=== PATIENT | male | born 1940 | race Caucasian/White ===

== ENCOUNTER 2021-03-20 10:17 | Inpatient (IN) | payer OTHER ==
[2021-03-20 12:35] LABS: VENOUS BASE EXCESS 1.7 mmol/L (-2-2); VENOUS PCO2 51.1 mmHg (38-52); VENOUS PH 7.355 (7.310-7.410)
[2021-03-20 12:42] LABS: BASO % 0.4 % (0-2.0); EOS % 5.3 % (0-4.5); HEMATOCRIT 31.2 % (35.4-49); HEMOGLOBIN 10.7 GM/dL (11.7-16.9); LYMPH % 17.4 % (8-40); MCH 32.1 pg (25.7-33.7); MCHC 34.3 g/dl (32.0-35.9); MEAN CELL VOLUME 93.6 fl (80-96); MEAN PLT VOLUME 7.9 fl (7.5-11.1); MONO % 9.2 % (3.8-10.2); NEUT % 67.7 % (42.8-82.8); PLATELET COUNT 213 K/MM3 (134-434); RBC 3.34 M/mm3 (4.00-5.60); RDW 14.8 % (11.9-15.9); WHITE BLOOD COUNT 6.2 K/mm3 (4.0-10.0)
[2021-03-20 12:57] LABS: CALCIUM 8.8 mg/dL (8.5-10.1)
[2021-03-20 12:58] LABS: ALBUMIN 3.4 g/dl (3.4-5.0); BLOOD UREA NITROGEN 44.5 mg/dL (7-18); MAGNESIUM 2.3 mg/dL (1.8-2.4)
[2021-03-20 13:01] LABS: CREATININE 1.9 mg/dL (0.55-1.3)
[2021-03-20 13:02] LABS: BILIRUBIN,TOTAL 0.4 mg/dL (0.2-1); TOT PROT 6.5 g/dl (6.4-8.2)
[2021-03-20] MEDS ORDERED: ACETAMINOPHEN 500 MG TABLET (FP) PO ONE (13:59)
[2021-03-20] MEDS ORDERED: ACETAMINOPHEN 500 MG TABLET (FP) ONE (14:05)
[2021-03-20] MEDS ORDERED: methylPREDNISolone NA SUCC 125 MG/2 ML VIAL IVPB ONE (14:33)
[2021-03-20] MEDS ORDERED: ALBUTEROL SO4 2.5/IPRATROPIUM 0.5 INH SOL 3 ML VIAL.NEB. NEB ONE (14:33)
[2021-03-20] MEDS ORDERED: CEFTRIAXONE 1,000 MG in DEXTROSE 5%-WATER - 50 ML IVPB ONE (14:34)
[2021-03-20] MEDS ORDERED: AZITHROMYCIN IVPB 500 MG in DEXTROSE 5%-WATER - 250 ML IVPB ONE (14:34)
[2021-03-20 14:55] LABS: INR 1.04 (0.83-1.09); PROTHROMBIN TIME (PATIENT) 12.8 SEC (9.7-13.0)
[2021-03-20 14:58] LABS: ACTIVATED PTT 23.9 SECONDS (25.2-36.5)
[2021-03-20] MEDS ORDERED: HEPARIN NA (PORCINE) 5,000 UNITS/ML 1ML VIAL IVPUSH ONE (15:23)
[2021-03-20] MEDS ORDERED: HEPARIN NA (PORCINE) 5,000 UNITS/ML 1ML VIAL IVPUSH PRN (15:23)
[2021-03-20] MEDS ORDERED: methylPREDNISolone NA SUCC 125 MG/2 ML VIAL ONE (15:23)
[2021-03-20] MEDS ORDERED: CEFTRIAXONE 1 GM/50 ML BAG ONE (15:24)
[2021-03-20] MEDS ORDERED: SODIUM CHLORIDE 1,000 ML IV SCH (16:30)
[2021-03-20] MEDS: PANTOPRAZOLE 20 MG TABLET PO SCH (17:42)
[2021-03-20] MEDS: methylPREDNISolone NA SUCC 40 MG/1 ML VIAL IVPUSH SCH (17:42)
[2021-03-20] MEDS: HEPARIN - 25,000 UNIT in SODIUM CHLORIDE 495 ML IV SCH (18:50)
[2021-03-20 20:01] VITALS: BMI 29.5
[2021-03-21] MEDS: methylPREDNISolone NA SUCC 40 MG/1 ML VIAL IVPUSH SCH ×3 (02:12→17:56)
[2021-03-21] MEDS: ACETAMINOPHEN 325 MG TABLET (FP) PO PRN ×2 (03:52→22:22)
[2021-03-21] MEDS ORDERED: ALBUTEROL SO4 0.083% IH SOL 2.5 MG/3 ML VIAL.NEB. NEB PRN (04:07)
[2021-03-21] MEDS: ALBUTEROL SO4 0.083% IH SOL 2.5 MG/3 ML VIAL.NEB. NEB PRN (04:35)
[2021-03-21 07:35] LABS: BASO % 0.4 % (0-2.0); EOS % 0.2 % (0-4.5); HEMATOCRIT 30.1 % (35.4-49); HEMOGLOBIN 10.4 GM/dL (11.7-16.9); LYMPH % 12.6 % (8-40); MCH 32.3 pg (25.7-33.7); MCHC 34.6 g/dl (32.0-35.9); MEAN CELL VOLUME 93.4 fl (80-96); MEAN PLT VOLUME 8.4 fl (7.5-11.1); MONO % 1.5 % (3.8-10.2); NEUT % 85.3 % (42.8-82.8); PLATELET COUNT 216 K/MM3 (134-434); RBC 3.23 M/mm3 (4.00-5.60); RDW 14.8 % (11.9-15.9); WHITE BLOOD COUNT 3.1 K/mm3 (4.0-10.0)
[2021-03-21] MEDS ORDERED: ALBUTEROL SO4 0.083% IH SOL 2.5 MG/3 ML VIAL.NEB. NEB SCH (08:00)
[2021-03-21 08:01] LABS: BLOOD UREA NITROGEN 43.7 mg/dL (7-18); CALCIUM 8.3 mg/dL (8.5-10.1); MAGNESIUM 2.1 mg/dL (1.8-2.4)
[2021-03-21 08:02] LABS: ALBUMIN 3.2 g/dl (3.4-5.0)
[2021-03-21 08:04] LABS: CREATININE 1.8 mg/dL (0.55-1.3)
[2021-03-21 08:05] LABS: BILIRUBIN,TOTAL 0.4 mg/dL (0.2-1); PHOSPHOROUS 4.3 mg/dL (2.5-4.9); TOT PROT 6.2 g/dl (6.4-8.2)
[2021-03-21] MEDS: TAMSULOSIN HCL 0.4 MG CAP PO SCH (09:27)
[2021-03-21] MEDS: PANTOPRAZOLE 20 MG TABLET PO SCH (09:27)
[2021-03-21] MEDS ORDERED: PT OWN MED DRAWER 7, Y5N ONE ×2 (11:22→13:15)
[2021-03-21] MEDS: BUDESONIDE/FORMETEROL FUMARATE 160/4.5 mcg INHALER IH SCH ×2 (11:23→22:21)
[2021-03-21] MEDS: HEPARIN NA (PORCINE) 5,000 UNITS/ML 1ML VIAL IVPUSH PRN (12:28)
[2021-03-21] MEDS: TIOTROPIUM BROMIDE 2.5 MCG (SPIRIVA) RESPIMAT INHALER IH SCH (12:30)
[2021-03-21 14:33] LABS: URINE APPEARANCE CLEAR; URINE BILIRUBIN NEGATIVE (NEGATIVE); URINE COLOR YELLOW; URINE GLUCOSE (UA) NEGATIVE (NEGATIVE); URINE KETONE NEGATIVE (NEGATIVE); URINE LEUK ESTERASE NEGATIVE (NEGATIVE); URINE NITRITE NEGATIVE (NEGATIVE); URINE PROTEIN NEGATIVE (NEGATIVE); URINE UROBILINOGEN 0.2 mg/dL (0.2-1.0)
[2021-03-21] MEDS: HEPARIN - 25,000 UNIT in SODIUM CHLORIDE 495 ML IV SCH (16:40)
[2021-03-21] MEDS: MIRTAZAPINE 15 MG TABLET (FP) PO SCH (23:50)
[2021-03-22] MEDS: HEPARIN - 25,000 UNIT in SODIUM CHLORIDE 495 ML IV SCH ×2 (05:02→17:02)
[2021-03-22 08:24] LABS: BASO % 0.1 % (0-2.0); HEMATOCRIT 31.6 % (35.4-49); HEMOGLOBIN 10.7 GM/dL (11.7-16.9); LYMPH % 6.5 % (8-40); MCH 31.8 pg (25.7-33.7); MCHC 33.7 g/dl (32.0-35.9); MEAN CELL VOLUME 94.3 fl (80-96); MEAN PLT VOLUME 8.1 fl (7.5-11.1); MONO % 4.6 % (3.8-10.2); NEUT % 88.8 % (42.8-82.8); PLATELET COUNT 273 K/MM3 (134-434); RBC 3.35 M/mm3 (4.00-5.60); WHITE BLOOD COUNT 10.1 K/mm3 (4.0-10.0)
[2021-03-22 08:51] LABS: ALBUMIN 3.3 g/dl (3.4-5.0); MAGNESIUM 2.5 mg/dL (1.8-2.4)
[2021-03-22 08:54] LABS: CREATININE 1.9 mg/dL (0.55-1.3); PHOSPHOROUS 3.9 mg/dL (2.5-4.9)
[2021-03-22 08:55] LABS: BILIRUBIN,TOTAL 0.2 mg/dL (0.2-1)
[2021-03-22 08:56] LABS: TOT PROT 6.6 g/dl (6.4-8.2)
[2021-03-22] MEDS: HEPARIN NA (PORCINE) 5,000 UNITS/ML 1ML VIAL IVPUSH PRN (09:12)
[2021-03-22] MEDS: TIOTROPIUM BROMIDE 2.5 MCG (SPIRIVA) RESPIMAT INHALER IH SCH (09:47)
[2021-03-22] MEDS: PANTOPRAZOLE 20 MG TABLET PO SCH (09:47)
[2021-03-22] MEDS: BUDESONIDE/FORMETEROL FUMARATE 160/4.5 mcg INHALER IH SCH ×2 (09:47→21:01)
[2021-03-22] MEDS: TAMSULOSIN HCL 0.4 MG CAP PO SCH (09:47)
[2021-03-22] MEDS: ALBUTEROL SO4 0.083% IH SOL 2.5 MG/3 ML VIAL.NEB. NEB PRN ×2 (09:47→20:41)
[2021-03-22] MEDS: methylPREDNISolone NA SUCC 40 MG/1 ML VIAL IVPUSH SCH ×2 (09:49→17:05)
[2021-03-22] MEDS: MIRTAZAPINE 15 MG TABLET (FP) PO SCH (21:02)
[2021-03-22] MEDS ORDERED: MIRTAZAPINE 15 MG TABLET (FP) PO SCH (22:00)
[2021-03-23] MEDS: methylPREDNISolone NA SUCC 40 MG/1 ML VIAL IVPUSH SCH ×2 (01:55→19:34)
[2021-03-23] MEDS: ALBUTEROL SO4 0.083% IH SOL 2.5 MG/3 ML VIAL.NEB. NEB PRN (07:25)
[2021-03-23 08:24] LABS: HEMATOCRIT 27.4 % (35.4-49); HEMOGLOBIN 9.3 GM/dL (11.7-16.9); MEAN CELL VOLUME 94.2 fl (80-96); MEAN PLT VOLUME 8.7 fl (7.5-11.1); PLATELET COUNT 229 K/MM3 (134-434); RBC 2.91 M/mm3 (4.00-5.60); RDW 14.5 % (11.9-15.9); WHITE BLOOD COUNT 8.6 K/mm3 (4.0-10.0)
[2021-03-23] MEDS ORDERED: methylPREDNISolone NA SUCC 40 MG/1 ML VIAL IVPUSH SCH (09:00)
[2021-03-23] MEDS: BUDESONIDE/FORMETEROL FUMARATE 160/4.5 mcg INHALER IH SCH ×2 (09:13→21:21)
[2021-03-23] MEDS: PANTOPRAZOLE 20 MG TABLET PO SCH (09:13)
[2021-03-23] MEDS: TAMSULOSIN HCL 0.4 MG CAP PO SCH (09:13)
[2021-03-23] MEDS: TIOTROPIUM BROMIDE 2.5 MCG (SPIRIVA) RESPIMAT INHALER IH SCH (09:13)
[2021-03-23] MEDS ORDERED: ALBUTEROL SO4 0.083% IH SOL 2.5 MG/3 ML VIAL.NEB. NEB PRN (12:10)
[2021-03-23] MEDS: ALBUTEROL SO4 0.083% IH SOL 2.5 MG/3 ML VIAL.NEB. NEB SCH ×2 (15:56→20:33)
[2021-03-23] MEDS: HEPARIN - 25,000 UNIT in SODIUM CHLORIDE 495 ML IV SCH (16:35)
[2021-03-23] MEDS: ACETAMINOPHEN 325 MG TABLET (FP) PO PRN (19:31)
[2021-03-23] MEDS: MIRTAZAPINE 15 MG TABLET (FP) PO SCH (21:20)
[2021-03-24 06:34] VITALS: PULSE 71; TEMP 97.6
[2021-03-24 07:46] LABS: HEMATOCRIT 29.5 % (35.4-49); MCH 32.3 pg (25.7-33.7); MCHC 34.1 g/dl (32.0-35.9); MEAN PLT VOLUME 8.9 fl (7.5-11.1); PLATELET COUNT 250 K/MM3 (134-434); WHITE BLOOD COUNT 10.3 K/mm3 (4.0-10.0)
[2021-03-24 07:56] VITALS: BP 128/78
[2021-03-24 08:07] LABS: ALBUMIN 2.8 g/dl (3.4-5.0); CALCIUM 8.7 mg/dL (8.5-10.1); MAGNESIUM 2.5 mg/dL (1.8-2.4)
[2021-03-24 08:11] LABS: CREATININE 1.3 mg/dL (0.55-1.3); PHOSPHOROUS 2.4 mg/dL (2.5-4.9)
[2021-03-24 08:12] LABS: BILIRUBIN,TOTAL 0.2 mg/dL (0.2-1); TOT PROT 5.6 g/dl (6.4-8.2)
[2021-03-24] MEDS: ALBUTEROL SO4 0.083% IH SOL 2.5 MG/3 ML VIAL.NEB. NEB SCH (08:29)
[2021-03-24] MEDS: methylPREDNISolone NA SUCC 40 MG/1 ML VIAL IVPUSH SCH (08:51)
[2021-03-24] MEDS: TAMSULOSIN HCL 0.4 MG CAP PO SCH (08:51)
[2021-03-24] MEDS: PANTOPRAZOLE 20 MG TABLET PO SCH (09:07)
[2021-03-24] MEDS: TIOTROPIUM BROMIDE 2.5 MCG (SPIRIVA) RESPIMAT INHALER IH SCH (09:07)
[2021-03-24] MEDS: BUDESONIDE/FORMETEROL FUMARATE 160/4.5 mcg INHALER IH SCH (09:07)
[2021-03-24] MEDS ORDERED: NAPH,MB-DB/K PH,MBDB POWDER PACKET PO ONE (09:07)
[2021-03-24] MEDS ORDERED: APIXABAN 5 MG TABLET PO ONE ×2 (11:00→12:00)
== END 2021-03-24 13:06 | disposition home or self-care (01) | DRG 300 ==
LOC: JER 10:17 → JERBED 14:20 → J4W 15:54
PROVIDERS: ADMIT Internal Medicine; ATTEND Internal Medicine
DX: I82.812 Embolism and thrombosis of superficial veins of left lower extremity (principal); J44.1 Chronic obstructive pulmonary disease with (acute) exacerbation; N17.9 Acute kidney failure, unspecified; N18.9 Chronic kidney disease, unspecified; D50.0 Iron deficiency anemia secondary to blood loss (chronic); N40.0 Benign prostatic hyperplasia without lower urinary tract symptoms; K59.00 Constipation, unspecified; M10.9 Gout, unspecified; E78.5 Hyperlipidemia, unspecified; I12.9 Hypertensive chronic kidney disease with stage 1 through stage 4 chronic kidney disease, or unspecified chronic kidney disease
CPT/HCPCS: 36415; 71045-TC-FY; 71250-TC; 76775-TC; 80053; 80061; 81003; 82570; 82803; 83036; 83721; 83735; 83880; 84100; 84156; 84300; 84443; 84484; 85025; 85027; 85379; 85384; 85610; 85730; 93005; 93010; 93306-TC; 93971-TC; 94640; 97116-GP; 97161-GP; 99285-25; C9803; J1644; U0003; U0005

== ENCOUNTER 2021-04-17 06:43 | Inpatient (IN) | payer OTHER ==
[2021-04-17] MEDS ORDERED: methylPREDNISolone NA SUCC 125 MG/2 ML VIAL IVPB ONE (07:37)
[2021-04-17] MEDS ORDERED: methylPREDNISolone NA SUCC 125 MG/2 ML VIAL ONE (07:59)
[2021-04-17] MEDS: ALBUTEROL SO4 2.5/IPRATROPIUM 0.5 INH SOL 3 ML VIAL.NEB. NEB SCH ×5 (08:05→20:30)
[2021-04-17 08:06] LABS: VENOUS BASE EXCESS 3.7 mmol/L (-2-2); VENOUS O2 SATURATION 17.9 % (70-80); VENOUS PCO2 58.2 mmHg (38-52); VENOUS PH 7.336 (7.310-7.410)
[2021-04-17 08:07] LABS: BASO % 0.8 % (0-2.0); EOS % 7.4 % (0-4.5); HEMATOCRIT 27.6 % (35.4-49); HEMOGLOBIN 9.5 GM/dL (11.7-16.9); LYMPH % 8.5 % (8-40); MCH 32.1 pg (25.7-33.7); MCHC 34.3 g/dl (32.0-35.9); MEAN CELL VOLUME 93.5 fl (80-96); MONO % 3.3 % (3.8-10.2); PLATELET COUNT 357 K/MM3 (134-434); RBC 2.95 M/mm3 (4.00-5.60); RDW 15.7 % (11.9-15.9); WHITE BLOOD COUNT 6.3 K/mm3 (4.0-10.0)
[2021-04-17 08:18] LABS: INR 1.6 (0.83-1.09); PROTHROMBIN TIME (PATIENT) 19.4 SEC (9.7-13.0)
[2021-04-17] MEDS ORDERED: ALBUTEROL SO4 2.5/IPRATROPIUM 0.5 INH SOL 3 ML VIAL.NEB. NEB ONE ×2 (08:20→15:44)
[2021-04-17 08:21] LABS: ACTIVATED PTT 26.5 SECONDS (25.2-36.5)
[2021-04-17 08:33] LABS: CHLORIDE 102 mmol/L (98-107); SODIUM 137 mmol/L (136-145)
[2021-04-17 08:36] LABS: CALCIUM 8.9 mg/dL (8.5-10.1)
[2021-04-17 08:37] LABS: ALBUMIN 3.1 g/dl (3.4-5.0); ANION GAP 7 MMOL/L (8-16); BLOOD UREA NITROGEN 39.4 mg/dL (7-18); CO2 28 mmol/L (21-32); GLUCOSE,RANDOM 118 mg/dL (74-106)
[2021-04-17 08:41] LABS: BILIRUBIN,TOTAL 0.5 mg/dL (0.2-1); LACTIC ACID 2.1 mmol/L (0.4-2.0); SGOT/AST 12 U/L (15-37); SGPT/ALT 19 U/L (13-61); TOT PROT 6.3 g/dl (6.4-8.2)
[2021-04-17 08:44] LABS: ALK PHOS 104 U/L (45-117)
[2021-04-17] MEDS ORDERED: CEFTRIAXONE 1,000 MG in DEXTROSE 5%-WATER - 50 ML IVPB ONE (09:21)
[2021-04-17] MEDS ORDERED: SODIUM CHLORIDE 0.9% 500 ML INFUS.BAG IV ONE (09:27)
[2021-04-17] MEDS ORDERED: CEFTRIAXONE 1 GM/50 ML BAG ONE (10:15)
[2021-04-17] MEDS ORDERED: COLCHICINE 0.6 MG CAP ONE (13:13)
[2021-04-17] MEDS ORDERED: TAMSULOSIN HCL 0.4 MG CAP ONE (13:14)
[2021-04-17] MEDS: COLCHICINE 0.6 MG CAP PO SCH (13:16)
[2021-04-17] MEDS: TAMSULOSIN HCL 0.4 MG CAP PO SCH (13:16)
[2021-04-17 14:28] LABS: LACTIC ACID 2.2 mmol/L (0.4-2.0)
[2021-04-17] MEDS ORDERED: FUROSEMIDE 40 MG/4 ML INJECTABLE VIAL IVPUSH ONE (14:50)
[2021-04-17] MEDS ORDERED: SODIUM ZIRCONIUM CYCLOSILICATE (LOKELMA) 5 GM PACKET PO ONE (17:38)
[2021-04-17] MEDS: methylPREDNISolone NA SUCC 40 MG/1 ML VIAL IVPUSH SCH (18:05)
[2021-04-17] MEDS: ALBUTEROL SO4 0.083% IH SOL 2.5 MG/3 ML VIAL.NEB. NEB PRN ×2 (18:27→20:30)
[2021-04-17] MEDS: guaiFENesin/D-METHORPHAN HB 10 ML UNIT-DOSE CUPS PO PRN ×2 (18:34→22:05)
[2021-04-17 18:52] VITALS: BMI 28.1
[2021-04-17] MEDS ORDERED: APIXABAN 5 MG TABLET PO SCH (22:00)
[2021-04-17] MEDS: ASCORBIC ACID 500 MG TABLET (FP) PO SCH (22:06)
[2021-04-17] MEDS: APIXABAN 2.5 MG TABLET PO SCH (22:06)
[2021-04-17] MEDS: BUDESONIDE/FORMETEROL FUMARATE 160/4.5 mcg INHALER IH SCH (22:06)
[2021-04-17] MEDS: MIRTAZAPINE 15 MG TABLET (FP) PO SCH (22:06)
[2021-04-17] MEDS: MELATONIN 5 MG TABLETS PO SCH (23:49)
[2021-04-18] MEDS: methylPREDNISolone NA SUCC 40 MG/1 ML VIAL IVPUSH SCH ×3 (01:09→17:55)
[2021-04-18 07:36] LABS: BASO % 0.1 % (0-2.0); HEMATOCRIT 28.3 % (35.4-49); HEMOGLOBIN 9.5 GM/dL (11.7-16.9); LYMPH % 5.8 % (8-40); MCH 31.6 pg (25.7-33.7); MCHC 33.7 g/dl (32.0-35.9); MEAN PLT VOLUME 6.8 fl (7.5-11.1); NEUT % 90.1 % (42.8-82.8); PLATELET COUNT 384 K/MM3 (134-434); RBC 3.02 M/mm3 (4.00-5.60); RDW 15.5 % (11.9-15.9); WHITE BLOOD COUNT 7.5 K/mm3 (4.0-10.0)
[2021-04-18] MEDS: ALBUTEROL SO4 2.5/IPRATROPIUM 0.5 INH SOL 3 ML VIAL.NEB. NEB SCH ×4 (07:45→20:10)
[2021-04-18 07:53] LABS: ALBUMIN 3.1 g/dl (3.4-5.0); BLOOD UREA NITROGEN 44.4 mg/dL (7-18); CALCIUM 8.2 mg/dL (8.5-10.1); MAGNESIUM 2.6 mg/dL (1.8-2.4)
[2021-04-18 07:56] LABS: CREATININE 1.9 mg/dL (0.55-1.3); PHOSPHOROUS 5.1 mg/dL (2.5-4.9)
[2021-04-18 07:58] LABS: BILIRUBIN,TOTAL 0.3 mg/dL (0.2-1); TOT PROT 6.2 g/dl (6.4-8.2)
[2021-04-18 08:00] LABS: LACTIC ACID 3.2 mmol/L (0.4-2.0)
[2021-04-18] MEDS ORDERED: PT OWN MED DRAWER 7, Y5N ONE ×2 (08:32→09:35)
[2021-04-18] MEDS: TAMSULOSIN HCL 0.4 MG CAP PO SCH (08:40)
[2021-04-18] MEDS ORDERED: SODIUM ZIRCONIUM CYCLOSILICATE (LOKELMA) 10 GM PACKET PO ONE (09:00)
[2021-04-18] MEDS ORDERED: DEXTROSE 50%-WATER - 25 GM/50 ML VIAL IVPUSH ONE (09:17)
[2021-04-18] MEDS ORDERED: INSULIN REGULAR HUMAN 100 UNITS/ML *VIAL IVPUSH ONE (09:30)
[2021-04-18] MEDS ORDERED: CALCIUM GLUCONATE 10% - 1,000 MG/10 ML VIAL IVPUSH ONE (09:30)
[2021-04-18] MEDS ORDERED: LISINOPRIL 5 MG TABLET PO SCH (10:00)
[2021-04-18] MEDS ORDERED: predniSONE 20 MG TABLET (UD) PO SCH (10:00)
[2021-04-18] MEDS: APIXABAN 2.5 MG TABLET PO SCH ×2 (10:18→21:17)
[2021-04-18] MEDS: PANTOPRAZOLE 40 MG TABLET PO SCH (10:19)
[2021-04-18] MEDS: ASCORBIC ACID 500 MG TABLET (FP) PO SCH ×2 (10:19→21:17)
[2021-04-18] MEDS: FUROSEMIDE 40 MG/4 ML INJECTABLE VIAL IVPUSH SCH (10:19)
[2021-04-18] MEDS: ALLOPURINOL 100 MG TABLET (FP) PO SCH (10:20)
[2021-04-18] MEDS: COLCHICINE 0.6 MG CAP PO SCH (10:21)
[2021-04-18] MEDS ORDERED: DEXTROSE 50%-WATER 25 GM/50 ML DISP.SYRIN ONE (11:56)
[2021-04-18] MEDS: BUDESONIDE/FORMETEROL FUMARATE 160/4.5 mcg INHALER IH SCH ×2 (13:03→21:17)
[2021-04-18] MEDS: TIOTROPIUM BROMIDE 2.5 MCG (SPIRIVA) RESPIMAT INHALER IH SCH (13:03)
[2021-04-18] MEDS: MIRTAZAPINE 15 MG TABLET (FP) PO SCH (21:17)
[2021-04-18] MEDS: MELATONIN 5 MG TABLETS PO SCH (21:17)
[2021-04-18] MEDS: guaiFENesin/D-METHORPHAN HB 10 ML UNIT-DOSE CUPS PO PRN (21:17)
[2021-04-19] MEDS: methylPREDNISolone NA SUCC 40 MG/1 ML VIAL IVPUSH SCH ×3 (01:10→17:19)
[2021-04-19] MEDS ORDERED: ACETAMINOPHEN 325 MG TABLET (FP) PO ONE (03:03)
[2021-04-19] MEDS: guaiFENesin/D-METHORPHAN HB 10 ML UNIT-DOSE CUPS PO PRN ×2 (03:10→21:13)
[2021-04-19] MEDS: ALBUTEROL SO4 0.083% IH SOL 2.5 MG/3 ML VIAL.NEB. NEB PRN (03:28)
[2021-04-19] MEDS: ALBUTEROL SO4 2.5/IPRATROPIUM 0.5 INH SOL 3 ML VIAL.NEB. NEB SCH ×4 (07:50→20:05)
[2021-04-19 08:07] LABS: BASO % 0.1 % (0-2.0); HEMATOCRIT 25.4 % (35.4-49); HEMOGLOBIN 8.9 GM/dL (11.7-16.9); LYMPH % 6.5 % (8-40); MCH 32.6 pg (25.7-33.7); MCHC 35.1 g/dl (32.0-35.9); MEAN CELL VOLUME 92.8 fl (80-96); MEAN PLT VOLUME 7.2 fl (7.5-11.1); MONO % 4.3 % (3.8-10.2); NEUT % 89.1 % (42.8-82.8); PLATELET COUNT 401 K/MM3 (134-434); RBC 2.74 M/mm3 (4.00-5.60); RDW 15.5 % (11.9-15.9); WHITE BLOOD COUNT 6.5 K/mm3 (4.0-10.0)
[2021-04-19 08:09] LABS: ALBUMIN 2.9 g/dl (3.4-5.0); CALCIUM 8.4 mg/dL (8.5-10.1)
[2021-04-19 08:10] LABS: BLOOD UREA NITROGEN 53.3 mg/dL (7-18); MAGNESIUM 2.5 mg/dL (1.8-2.4)
[2021-04-19 08:12] LABS: CREATININE 1.6 mg/dL (0.55-1.3); PHOSPHOROUS 4.3 mg/dL (2.5-4.9)
[2021-04-19 08:13] LABS: BILIRUBIN,TOTAL 0.3 mg/dL (0.2-1)
[2021-04-19 08:14] LABS: TOT PROT 5.7 g/dl (6.4-8.2)
[2021-04-19] MEDS: FUROSEMIDE 40 MG/4 ML INJECTABLE VIAL IVPUSH SCH (09:53)
[2021-04-19] MEDS: PANTOPRAZOLE 40 MG TABLET PO SCH (09:54)
[2021-04-19] MEDS: ASCORBIC ACID 500 MG TABLET (FP) PO SCH ×2 (09:55→21:13)
[2021-04-19] MEDS: TAMSULOSIN HCL 0.4 MG CAP PO SCH (09:55)
[2021-04-19] MEDS: ALLOPURINOL 100 MG TABLET (FP) PO SCH (09:55)
[2021-04-19] MEDS: APIXABAN 2.5 MG TABLET PO SCH ×2 (09:55→21:13)
[2021-04-19] MEDS: TIOTROPIUM BROMIDE 2.5 MCG (SPIRIVA) RESPIMAT INHALER IH SCH (09:55)
[2021-04-19] MEDS: COLCHICINE 0.6 MG CAP PO SCH (09:55)
[2021-04-19] MEDS: BUDESONIDE/FORMETEROL FUMARATE 160/4.5 mcg INHALER IH SCH ×2 (09:55→21:24)
[2021-04-19] MEDS ORDERED: dilTIAZem HCL 30 MG TABLET PO SCH (11:30)
[2021-04-19] MEDS ORDERED: PT OWN MED DRAWER 7, Y5N ONE (12:10)
[2021-04-19] MEDS: MIRTAZAPINE 15 MG TABLET (FP) PO SCH (21:13)
[2021-04-19] MEDS: dilTIAZem HCL 30 MG TABLET PO SCH (21:17)
[2021-04-19] MEDS: ACETAMINOPHEN 325 MG TABLET (FP) PO PRN (21:17)
[2021-04-19] MEDS: MELATONIN 5 MG TABLETS PO SCH (21:17)
[2021-04-20] MEDS: methylPREDNISolone NA SUCC 40 MG/1 ML VIAL IVPUSH SCH ×3 (01:14→17:48)
[2021-04-20] MEDS: guaiFENesin/D-METHORPHAN HB 10 ML UNIT-DOSE CUPS PO PRN ×2 (06:06→21:07)
[2021-04-20] MEDS: ALBUTEROL SO4 2.5/IPRATROPIUM 0.5 INH SOL 3 ML VIAL.NEB. NEB SCH ×4 (07:50→20:43)
[2021-04-20] MEDS: TAMSULOSIN HCL 0.4 MG CAP PO SCH (08:34)
[2021-04-20] MEDS: PANTOPRAZOLE 40 MG TABLET PO SCH (09:08)
[2021-04-20] MEDS: ASCORBIC ACID 500 MG TABLET (FP) PO SCH ×2 (09:08→21:05)
[2021-04-20] MEDS: FUROSEMIDE 40 MG/4 ML INJECTABLE VIAL IVPUSH SCH (09:08)
[2021-04-20] MEDS: ALLOPURINOL 100 MG TABLET (FP) PO SCH (09:09)
[2021-04-20] MEDS: APIXABAN 2.5 MG TABLET PO SCH ×2 (09:09→21:06)
[2021-04-20] MEDS: COLCHICINE 0.6 MG CAP PO SCH (09:09)
[2021-04-20] MEDS: TIOTROPIUM BROMIDE 2.5 MCG (SPIRIVA) RESPIMAT INHALER IH SCH (09:10)
[2021-04-20] MEDS: BUDESONIDE/FORMETEROL FUMARATE 160/4.5 mcg INHALER IH SCH ×2 (09:10→21:06)
[2021-04-20] MEDS: dilTIAZem HCL 30 MG TABLET PO SCH ×2 (09:10→21:06)
[2021-04-20 13:14] LABS: BASO % 0.1 % (0-2.0); HEMATOCRIT 32.2 % (35.4-49); HEMOGLOBIN 10.7 GM/dL (11.7-16.9); LYMPH % 6.1 % (8-40); MCH 30.9 pg (25.7-33.7); MCHC 33.1 g/dl (32.0-35.9); MEAN CELL VOLUME 93.1 fl (80-96); MEAN PLT VOLUME 7.1 fl (7.5-11.1); MONO % 4.8 % (3.8-10.2); PLATELET COUNT 613 K/MM3 (134-434); RBC 3.46 M/mm3 (4.00-5.60); RDW 15.8 % (11.9-15.9)
[2021-04-20 13:36] LABS: ALBUMIN 3.3 g/dl (3.4-5.0); BLOOD UREA NITROGEN 54.6 mg/dL (7-18); CALCIUM 9.2 mg/dL (8.5-10.1)
[2021-04-20 13:37] LABS: MAGNESIUM 2.5 mg/dL (1.8-2.4)
[2021-04-20 13:39] LABS: CREATININE 1.7 mg/dL (0.55-1.3)
[2021-04-20 13:40] LABS: PHOSPHOROUS 3.1 mg/dL (2.5-4.9)
[2021-04-20 13:41] LABS: BILIRUBIN,TOTAL 0.2 mg/dL (0.2-1); TOT PROT 6.7 g/dl (6.4-8.2)
[2021-04-20 13:57] LABS: ANISOCYTOSIS 1+; MACROCYTOSIS 0; PLATELET ESTIMATE INCREASED
[2021-04-20] MEDS: MIRTAZAPINE 15 MG TABLET (FP) PO SCH (21:06)
[2021-04-20] MEDS: MELATONIN 5 MG TABLETS PO SCH (21:06)
[2021-04-20] MEDS: ACETAMINOPHEN 325 MG TABLET (FP) PO PRN (21:12)
[2021-04-21] MEDS: methylPREDNISolone NA SUCC 40 MG/1 ML VIAL IVPUSH SCH ×2 (01:16→09:44)
[2021-04-21 07:59] LABS: BASO % 0.2 % (0-2.0); EOS % 0.2 % (0-4.5); HEMATOCRIT 26.4 % (35.4-49); HEMOGLOBIN 9.1 GM/dL (11.7-16.9); LYMPH % 8.6 % (8-40); MCH 31.9 pg (25.7-33.7); MCHC 34.5 g/dl (32.0-35.9); MEAN CELL VOLUME 92.3 fl (80-96); MEAN PLT VOLUME 7.2 fl (7.5-11.1); PLATELET COUNT 495 K/MM3 (134-434); RBC 2.86 M/mm3 (4.00-5.60); RDW 15.6 % (11.9-15.9); WHITE BLOOD COUNT 10.6 K/mm3 (4.0-10.0)
[2021-04-21] MEDS: TAMSULOSIN HCL 0.4 MG CAP PO SCH (08:02)
[2021-04-21 08:15] LABS: CALCIUM 8.3 mg/dL (8.5-10.1)
[2021-04-21] MEDS: ALBUTEROL SO4 2.5/IPRATROPIUM 0.5 INH SOL 3 ML VIAL.NEB. NEB SCH ×4 (08:15→20:22)
[2021-04-21 08:16] LABS: BLOOD UREA NITROGEN 63.4 mg/dL (7-18); MAGNESIUM 2.4 mg/dL (1.8-2.4)
[2021-04-21 08:17] LABS: BILIRUBIN,TOTAL 0.2 mg/dL (0.2-1); TOT PROT 5.4 g/dl (6.4-8.2)
[2021-04-21 08:18] LABS: CREATININE 1.6 mg/dL (0.55-1.3)
[2021-04-21 08:19] LABS: ALBUMIN 2.6 g/dl (3.4-5.0); PHOSPHOROUS 3.2 mg/dL (2.5-4.9)
[2021-04-21] MEDS: FUROSEMIDE 40 MG/4 ML INJECTABLE VIAL IVPUSH SCH (09:43)
[2021-04-21] MEDS: dilTIAZem HCL 30 MG TABLET PO SCH ×2 (09:44→21:09)
[2021-04-21] MEDS: ASCORBIC ACID 500 MG TABLET (FP) PO SCH ×2 (09:44→21:08)
[2021-04-21] MEDS: PANTOPRAZOLE 40 MG TABLET PO SCH (09:44)
[2021-04-21] MEDS: COLCHICINE 0.6 MG CAP PO SCH (09:45)
[2021-04-21] MEDS: TIOTROPIUM BROMIDE 2.5 MCG (SPIRIVA) RESPIMAT INHALER IH SCH (09:45)
[2021-04-21] MEDS: APIXABAN 2.5 MG TABLET PO SCH ×2 (09:45→21:08)
[2021-04-21] MEDS: ALLOPURINOL 100 MG TABLET (FP) PO SCH (09:45)
[2021-04-21] MEDS: BUDESONIDE/FORMETEROL FUMARATE 160/4.5 mcg INHALER IH SCH ×2 (09:45→21:09)
[2021-04-21 10:00] LABS: ANISOCYTOSIS 0; MACROCYTOSIS 1+; OVALOCYTE 1+; PLATELET ESTIMATE INCREASED
[2021-04-21] MEDS: MELATONIN 5 MG TABLETS PO SCH (21:08)
[2021-04-21] MEDS: MIRTAZAPINE 15 MG TABLET (FP) PO SCH (21:08)
[2021-04-21] MEDS: ACETAMINOPHEN 325 MG TABLET (FP) PO PRN (21:18)
[2021-04-22] MEDS: guaiFENesin/D-METHORPHAN HB 10 ML UNIT-DOSE CUPS PO PRN (06:41)
[2021-04-22 07:19] LABS: BASO % 0.4 % (0-2.0); EOS % 0.1 % (0-4.5); HEMATOCRIT 29.2 % (35.4-49); HEMOGLOBIN 9.7 GM/dL (11.7-16.9); LYMPH % 7.9 % (8-40); MCH 31.2 pg (25.7-33.7); MCHC 33.3 g/dl (32.0-35.9); MEAN CELL VOLUME 93.7 fl (80-96); MEAN PLT VOLUME 7.3 fl (7.5-11.1); MONO % 6.7 % (3.8-10.2); NEUT % 84.9 % (42.8-82.8); PLATELET COUNT 514 K/MM3 (134-434); RBC 3.11 M/mm3 (4.00-5.60); RDW 15.6 % (11.9-15.9)
[2021-04-22 07:49] LABS: CALCIUM 8.7 mg/dL (8.5-10.1)
[2021-04-22 07:50] LABS: ALBUMIN 2.8 g/dl (3.4-5.0); BLOOD UREA NITROGEN 66.8 mg/dL (7-18); MAGNESIUM 2.4 mg/dL (1.8-2.4)
[2021-04-22 07:53] LABS: CREATININE 1.5 mg/dL (0.55-1.3)
[2021-04-22 07:54] LABS: BILIRUBIN,TOTAL 0.2 mg/dL (0.2-1); PHOSPHOROUS 3.1 mg/dL (2.5-4.9); TOT PROT 5.6 g/dl (6.4-8.2)
[2021-04-22] MEDS: ALBUTEROL SO4 2.5/IPRATROPIUM 0.5 INH SOL 3 ML VIAL.NEB. NEB SCH ×2 (08:25→12:03)
[2021-04-22] MEDS: FUROSEMIDE 40 MG/4 ML INJECTABLE VIAL IVPUSH SCH (09:06)
[2021-04-22] MEDS: ASCORBIC ACID 500 MG TABLET (FP) PO SCH (09:08)
[2021-04-22] MEDS: dilTIAZem HCL 30 MG TABLET PO SCH (09:08)
[2021-04-22] MEDS: APIXABAN 2.5 MG TABLET PO SCH (09:08)
[2021-04-22] MEDS: COLCHICINE 0.6 MG CAP PO SCH (09:08)
[2021-04-22] MEDS: TAMSULOSIN HCL 0.4 MG CAP PO SCH (09:08)
[2021-04-22] MEDS: PANTOPRAZOLE 40 MG TABLET PO SCH (09:08)
[2021-04-22] MEDS: ALLOPURINOL 100 MG TABLET (FP) PO SCH (09:09)
[2021-04-22] MEDS: BUDESONIDE/FORMETEROL FUMARATE 160/4.5 mcg INHALER IH SCH (09:16)
[2021-04-22] MEDS: TIOTROPIUM BROMIDE 2.5 MCG (SPIRIVA) RESPIMAT INHALER IH SCH (09:16)
[2021-04-22] MEDS ORDERED: predniSONE 20 MG TABLET (UD) PO SCH (10:00)
[2021-04-22 11:22] LABS: ANISOCYTOSIS 1+; MACROCYTOSIS 0; OVALOCYTE 1+; PLATELET ESTIMATE INCREASED; TEAR DROP CELLS 1+
[2021-04-22 13:21] VITALS: BP 122/69; PULSE 96; TEMP 97.9
== END 2021-04-22 14:22 | disposition home or self-care (01) | DRG 191 ==
LOC: JER 06:43 → JERBED 09:27 → J4W 17:31 → J4S 20:16
PROVIDERS: ADMIT Internal Medicine; ATTEND Student in an Organized Health Care Education/Training Program
DX: J44.1 Chronic obstructive pulmonary disease with (acute) exacerbation (principal); J96.11 Chronic respiratory failure with hypoxia; I50.32 Chronic diastolic (congestive) heart failure; E87.2 Acidosis; I13.0 Hypertensive heart and chronic kidney disease with heart failure and stage 1 through stage 4 chronic kidney disease, or unspecified chronic kidney disease; N17.9 Acute kidney failure, unspecified; N18.9 Chronic kidney disease, unspecified; D50.9 Iron deficiency anemia, unspecified; N40.0 Benign prostatic hyperplasia without lower urinary tract symptoms; K59.00 Constipation, unspecified; E87.5 Hyperkalemia; M10.9 Gout, unspecified; E66.9 Obesity, unspecified; Z68.28 Body mass index [BMI] 28.0-28.9, adult
CPT/HCPCS: 36415; 71045-TC-FY; 71250-TC; 76775-TC; 76856-TC; 80053; 82272; 82803; 83605; 83735; 83880; 84100; 84484; 85025; 85610; 85730; 93005; 93010; 93970-TC; 94640; 97116-GP; 97161-GP; 99285-25; C9803; U0003; U0005

== ENCOUNTER 2021-12-23 15:09 | Inpatient (IN) | payer OTHER ==
[2021-12-23] MEDS ORDERED: DEXAMETHASONE SOD PHOSPHATE 4 MG/1 ML VIAL IVPUSH ONE (16:15)
[2021-12-23 16:38] VITALS: BMI 29.4
[2021-12-23] MEDS ORDERED: DEXAMETHASONE SOD PHOSPHATE 10 MG/1 ML VIAL ONE (16:39)
[2021-12-23 17:31] LABS: BASO % 0.1 % (0-2.0); HEMATOCRIT 33.8 % (35.4-49); HEMOGLOBIN 11.2 GM/dL (11.7-16.9); LYMPH % 10.3 % (8-40); MCH 30.5 pg (25.7-33.7); MEAN CELL VOLUME 92.5 fl (80-96); MEAN PLT VOLUME 8.1 fl (7.5-11.1); MONO % 7.2 % (3.8-10.2); NEUT % 82.4 % (42.8-82.8); PLATELET COUNT 172 10^3/uL (134-434); RBC 3.66 M/mm3 (4.00-5.60); RDW 14.4 % (11.9-15.9); WHITE BLOOD COUNT 7.3 K/mm3 (4.0-10.0)
[2021-12-23 17:39] LABS: INR 1.08 (0.83-1.09); PROTHROMBIN TIME (PATIENT) 12.4 SEC (9.7-13.0)
[2021-12-23 17:42] LABS: ACTIVATED PTT 26.1 SECONDS (25.2-36.5)
[2021-12-23 17:51] LABS: ALBUMIN 3.3 g/dl (3.4-5.0); BLOOD UREA NITROGEN 50.4 mg/dL (7-18)
[2021-12-23 17:54] LABS: CREATININE 1.9 mg/dL (0.55-1.3)
[2021-12-23 17:56] LABS: BILIRUBIN,TOTAL 0.4 mg/dL (0.2-1); TOT PROT 6.3 g/dl (6.4-8.2)
[2021-12-23 20:07] LABS: ERYTHROCYTE SEDIMENTATION RATE 40 mm/hr (0-20)
[2021-12-23 20:19] LABS: EPI CELLS 3 /uL (0-25.1); HYALINE CASTS 2 /uL (0-3.1); URINE APPEARANCE CLEAR; URINE BACTERIA 6 /uL (0-1359); URINE BILIRUBIN NEGATIVE (NEGATIVE); URINE COLOR YELLOW; URINE GLUCOSE (UA) NEGATIVE (NEGATIVE); URINE KETONE NEGATIVE (NEGATIVE); URINE LEUK ESTERASE NEGATIVE (NEGATIVE); URINE NITRITE NEGATIVE (NEGATIVE); URINE PROTEIN 1+ (NEGATIVE); URINE RBC 2 /uL (0-23.9); URINE UROBILINOGEN 0.2 mg/dL (0.2-1.0); URINE WBC 2 /uL (0-25.8)
[2021-12-23] MEDS ORDERED: REMDESIVIR 200 MG in SODIUM CHLORIDE 250 ML IVPB ONE (22:00)
[2021-12-23] MEDS ORDERED: guaiFENesin/CODEINE 5 ML UNIT-DOSE CUPS PO PRN (23:20)
[2021-12-23] MEDS ORDERED: PATIENT'S OWN MEDICATION (NON-FORMULARY) (Ipratropium/Albuterol Sulfate 1 PUFF Inhaler) IH SCH (23:30)
[2021-12-23] MEDS ORDERED: LACTATED RINGERS SOLUTION 1,000 ML/1,000 ML INFUS.BAG IV SCH (23:45)
[2021-12-24] MEDS: HEPARIN NA (PORCINE) 5,000 UNITS/ML 1ML VIAL SQ SCH ×3 (07:01→21:30)
[2021-12-24 08:25] LABS: HEMATOCRIT 35.3 % (35.4-49); HEMOGLOBIN 11.6 GM/dL (11.7-16.9); MCH 30.2 pg (25.7-33.7); MCHC 32.9 g/dl (32.0-35.9); MEAN CELL VOLUME 91.7 fl (80-96); MEAN PLT VOLUME 7.9 fl (7.5-11.1); PLATELET COUNT 178 10^3/uL (134-434); RBC 3.85 M/mm3 (4.00-5.60); RDW 14.6 % (11.9-15.9); WHITE BLOOD COUNT 4.1 K/mm3 (4.0-10.0)
[2021-12-24 08:46] LABS: CALCIUM 8.2 mg/dL (8.5-10.1)
[2021-12-24 08:47] LABS: BLOOD UREA NITROGEN 47.2 mg/dL (7-18); MAGNESIUM 2.5 mg/dL (1.8-2.4)
[2021-12-24 08:49] LABS: CREATININE 1.4 mg/dL (0.55-1.3); PHOSPHOROUS 5.2 mg/dL (2.5-4.9)
[2021-12-24 08:51] LABS: BILIRUBIN,TOTAL 0.4 mg/dL (0.2-1); TOT PROT 5.8 g/dl (6.4-8.2)
[2021-12-24] MEDS ORDERED: ENOXAPARIN NA (PORCINE) 40 MG/0.4 ML DISP.SYRIN SQ SCH (10:00)
[2021-12-24] MEDS: TIOTROPIUM BROMIDE 2.5 MCG (SPIRIVA) RESPIMAT INHALER IH SCH (11:20)
[2021-12-24] MEDS: BUDESONIDE/FORMETEROL FUMARATE 160/4.5 mcg INHALER IH SCH ×2 (11:20→21:31)
[2021-12-24] MEDS: DEXAMETHASONE SOD PHOSPHATE 10 MG/1 ML VIAL IVPUSH SCH (11:21)
[2021-12-24] MEDS: dilTIAZem HCL 30 MG TABLET PO SCH ×2 (11:21→23:00)
[2021-12-24] MEDS: ASCORBIC ACID 500 MG TABLET (FP) PO SCH ×2 (11:21→21:31)
[2021-12-24] MEDS: ALLOPURINOL 100 MG TABLET (FP) PO SCH (11:22)
[2021-12-24] MEDS: PANTOPRAZOLE SODIUM 40 MG VIAL IVPUSH SCH (11:22)
[2021-12-24] MEDS: ASPIRIN COATED 81 MG TABLET.EC PO SCH (11:22)
[2021-12-24] MEDS: FUROSEMIDE 40 MG TABLET (FP) PO SCH (11:22)
[2021-12-24] MEDS: TAMSULOSIN HCL 0.4 MG CAP PO SCH (11:22)
[2021-12-24] MEDS: MELATONIN 1 MG TABLET PO SCH (21:31)
[2021-12-24] MEDS: MIRTAZAPINE 15 MG TABLET (FP) PO SCH (21:31)
[2021-12-24] MEDS: REMDESIVIR 100 MG in SODIUM CHLORIDE 250 ML IVPB SCH (21:45)
[2021-12-25] MEDS: HEPARIN NA (PORCINE) 5,000 UNITS/ML 1ML VIAL SQ SCH ×3 (05:20→22:03)
[2021-12-25] MEDS: TAMSULOSIN HCL 0.4 MG CAP PO SCH (08:37)
[2021-12-25 08:55] LABS: BASO % 0.1 % (0-2.0); EOS % 0.1 % (0-4.5); HEMATOCRIT 34.5 % (35.4-49); HEMOGLOBIN 11.4 GM/dL (11.7-16.9); LYMPH % 13.6 % (8-40); MCH 30.4 pg (25.7-33.7); MCHC 33.1 g/dl (32.0-35.9); MEAN PLT VOLUME 8.7 fl (7.5-11.1); MONO % 8.6 % (3.8-10.2); NEUT % 77.6 % (42.8-82.8); PLATELET COUNT 198 10^3/uL (134-434); RBC 3.75 M/mm3 (4.00-5.60); RDW 14.4 % (11.9-15.9); WHITE BLOOD COUNT 5.9 K/mm3 (4.0-10.0)
[2021-12-25 09:14] LABS: CALCIUM 8.2 mg/dL (8.5-10.1)
[2021-12-25 09:15] LABS: ALBUMIN 2.6 g/dl (3.4-5.0); BLOOD UREA NITROGEN 43.6 mg/dL (7-18); MAGNESIUM 2.5 mg/dL (1.8-2.4)
[2021-12-25 09:18] LABS: CREATININE 1.1 mg/dL (0.55-1.3)
[2021-12-25 09:19] LABS: BILIRUBIN,TOTAL 0.3 mg/dL (0.2-1); TOT PROT 5.4 g/dl (6.4-8.2)
[2021-12-25] MEDS: DEXAMETHASONE SOD PHOSPHATE 10 MG/1 ML VIAL IVPUSH SCH (10:16)
[2021-12-25] MEDS: ASPIRIN COATED 81 MG TABLET.EC PO SCH (10:16)
[2021-12-25] MEDS: dilTIAZem HCL 30 MG TABLET PO SCH ×3 (10:16→22:11)
[2021-12-25] MEDS: PANTOPRAZOLE SODIUM 40 MG VIAL IVPUSH SCH (10:16)
[2021-12-25] MEDS: FUROSEMIDE 40 MG TABLET (FP) PO SCH ×2 (10:16→10:30)
[2021-12-25] MEDS: TIOTROPIUM BROMIDE 2.5 MCG (SPIRIVA) RESPIMAT INHALER IH SCH (10:17)
[2021-12-25] MEDS: BUDESONIDE/FORMETEROL FUMARATE 160/4.5 mcg INHALER IH SCH ×2 (10:17→22:04)
[2021-12-25] MEDS: ASCORBIC ACID 500 MG TABLET (FP) PO SCH ×2 (10:17→22:03)
[2021-12-25] MEDS: ALLOPURINOL 100 MG TABLET (FP) PO SCH (10:17)
[2021-12-25] MEDS ORDERED: cefTRIAXone SODIUM 1 GM VIAL ONE (14:04)
[2021-12-25] MEDS ORDERED: DEXTROSE 5%-WATER - 50 ML IVPB ONE (14:04)
[2021-12-25] MEDS: CEFTRIAXONE 1 GM in DEXTROSE 5%-WATER - 50 ML IVPB SCH (14:38)
[2021-12-25] MEDS: MIRTAZAPINE 15 MG TABLET (FP) PO SCH (22:03)
[2021-12-25] MEDS: MELATONIN 1 MG TABLET PO SCH (22:03)
[2021-12-25] MEDS: REMDESIVIR 100 MG in SODIUM CHLORIDE 250 ML IVPB SCH (22:04)
[2021-12-25] MEDS: ACETAMINOPHEN 325 MG TABLET (FP) PO PRN (22:15)
[2021-12-26] MEDS: HEPARIN NA (PORCINE) 5,000 UNITS/ML 1ML VIAL SQ SCH ×3 (05:55→22:08)
[2021-12-26 08:22] LABS: BASO % 0.3 % (0-2.0); HEMATOCRIT 34.3 % (35.4-49); HEMOGLOBIN 11.2 GM/dL (11.7-16.9); LYMPH % 12.3 % (8-40); MCH 30.1 pg (25.7-33.7); MCHC 32.8 g/dl (32.0-35.9); MEAN CELL VOLUME 91.8 fl (80-96); MEAN PLT VOLUME 8.9 fl (7.5-11.1); MONO % 7.1 % (3.8-10.2); NEUT % 80.3 % (42.8-82.8); PLATELET COUNT 198 10^3/uL (134-434); RBC 3.74 M/mm3 (4.00-5.60); RDW 14.5 % (11.9-15.9); WHITE BLOOD COUNT 6.3 K/mm3 (4.0-10.0)
[2021-12-26 08:46] LABS: ALBUMIN 2.5 g/dl (3.4-5.0); BLOOD UREA NITROGEN 46.8 mg/dL (7-18); MAGNESIUM 2.4 mg/dL (1.8-2.4)
[2021-12-26 08:49] LABS: CREATININE 1.1 mg/dL (0.55-1.3)
[2021-12-26 08:51] LABS: BILIRUBIN,TOTAL 0.3 mg/dL (0.2-1); TOT PROT 5.1 g/dl (6.4-8.2)
[2021-12-26] MEDS ORDERED: DEXTROSE 5%-WATER - 50 ML IVPB ONE (11:13)
[2021-12-26] MEDS ORDERED: cefTRIAXone SODIUM 1 GM VIAL ONE (11:13)
[2021-12-26] MEDS: TAMSULOSIN HCL 0.4 MG CAP PO SCH (11:21)
[2021-12-26] MEDS: ASPIRIN COATED 81 MG TABLET.EC PO SCH (11:22)
[2021-12-26] MEDS: ALLOPURINOL 100 MG TABLET (FP) PO SCH (11:22)
[2021-12-26] MEDS: TIOTROPIUM BROMIDE 2.5 MCG (SPIRIVA) RESPIMAT INHALER IH SCH (11:22)
[2021-12-26] MEDS: ASCORBIC ACID 500 MG TABLET (FP) PO SCH ×2 (11:22→22:08)
[2021-12-26] MEDS: FUROSEMIDE 40 MG TABLET (FP) PO SCH (11:22)
[2021-12-26] MEDS: PANTOPRAZOLE 40 MG TABLET PO SCH (11:22)
[2021-12-26] MEDS: BUDESONIDE/FORMETEROL FUMARATE 160/4.5 mcg INHALER IH SCH ×2 (11:22→22:09)
[2021-12-26] MEDS: dilTIAZem HCL 30 MG TABLET PO SCH ×2 (11:22→22:09)
[2021-12-26] MEDS: CEFTRIAXONE 1 GM in DEXTROSE 5%-WATER - 50 ML IVPB SCH (11:23)
[2021-12-26] MEDS: DEXAMETHASONE SOD PHOSPHATE 10 MG/1 ML VIAL IVPUSH SCH (11:23)
[2021-12-26] MEDS: MIRTAZAPINE 15 MG TABLET (FP) PO SCH (22:08)
[2021-12-26] MEDS: MELATONIN 1 MG TABLET PO SCH (22:08)
[2021-12-26] MEDS: REMDESIVIR 100 MG in SODIUM CHLORIDE 250 ML IVPB SCH (22:09)
[2021-12-27] MEDS: HEPARIN NA (PORCINE) 5,000 UNITS/ML 1ML VIAL SQ SCH ×3 (06:25→22:22)
[2021-12-27] MEDS ORDERED: cefTRIAXone SODIUM 1 GM VIAL ONE (10:22)
[2021-12-27] MEDS ORDERED: DEXTROSE 5%-WATER - 50 ML IVPB ONE (10:23)
[2021-12-27] MEDS: CEFTRIAXONE 1 GM in DEXTROSE 5%-WATER - 50 ML IVPB SCH (11:09)
[2021-12-27] MEDS: DEXAMETHASONE SOD PHOSPHATE 10 MG/1 ML VIAL IVPUSH SCH (11:10)
[2021-12-27] MEDS: ASPIRIN COATED 81 MG TABLET.EC PO SCH (11:10)
[2021-12-27] MEDS: ASCORBIC ACID 500 MG TABLET (FP) PO SCH ×2 (11:10→22:22)
[2021-12-27] MEDS: ALLOPURINOL 100 MG TABLET (FP) PO SCH (11:11)
[2021-12-27] MEDS: PANTOPRAZOLE 40 MG TABLET PO SCH (11:11)
[2021-12-27] MEDS: TAMSULOSIN HCL 0.4 MG CAP PO SCH (11:11)
[2021-12-27] MEDS: dilTIAZem HCL 30 MG TABLET PO SCH ×2 (11:13→22:22)
[2021-12-27] MEDS: BUDESONIDE/FORMETEROL FUMARATE 160/4.5 mcg INHALER IH SCH ×2 (11:14→22:22)
[2021-12-27] MEDS: TIOTROPIUM BROMIDE 2.5 MCG (SPIRIVA) RESPIMAT INHALER IH SCH (11:14)
[2021-12-27] MEDS: FUROSEMIDE 40 MG TABLET (FP) PO SCH (11:14)
[2021-12-27 12:47] LABS: BASO % 0.3 % (0-2.0); HEMATOCRIT 34.8 % (35.4-49); HEMOGLOBIN 11.4 GM/dL (11.7-16.9); LYMPH % 8.7 % (8-40); MCH 30.3 pg (25.7-33.7); MCHC 32.9 g/dl (32.0-35.9); MEAN CELL VOLUME 92.1 fl (80-96); MEAN PLT VOLUME 8.4 fl (7.5-11.1); MONO % 8.3 % (3.8-10.2); NEUT % 82.7 % (42.8-82.8); PLATELET COUNT 211 10^3/uL (134-434); RBC 3.77 M/mm3 (4.00-5.60); RDW 14.1 % (11.9-15.9); WHITE BLOOD COUNT 7.3 K/mm3 (4.0-10.0)
[2021-12-27 13:10] LABS: ALBUMIN 2.6 g/dl (3.4-5.0); CALCIUM 8.3 mg/dL (8.5-10.1)
[2021-12-27 13:11] LABS: BLOOD UREA NITROGEN 42.7 mg/dL (7-18); MAGNESIUM 2.4 mg/dL (1.8-2.4)
[2021-12-27 13:14] LABS: CREATININE 1.1 mg/dL (0.55-1.3)
[2021-12-27 13:15] LABS: BILIRUBIN,TOTAL 0.2 mg/dL (0.2-1); TOT PROT 5.2 g/dl (6.4-8.2)
[2021-12-27] MEDS: MELATONIN 1 MG TABLET PO SCH (22:21)
[2021-12-27] MEDS: REMDESIVIR 100 MG in SODIUM CHLORIDE 250 ML IVPB SCH (22:21)
[2021-12-27] MEDS: MIRTAZAPINE 15 MG TABLET (FP) PO SCH (22:22)
[2021-12-28] MEDS: HEPARIN NA (PORCINE) 5,000 UNITS/ML 1ML VIAL SQ SCH ×3 (05:38→22:07)
[2021-12-28 09:19] LABS: HEMOGLOBIN 12.1 GM/dL (11.7-16.9); MCH 30.1 pg (25.7-33.7); MCHC 32.8 g/dl (32.0-35.9); MEAN CELL VOLUME 91.7 fl (80-96); MEAN PLT VOLUME 8.9 fl (7.5-11.1); PLATELET COUNT 227 10^3/uL (134-434); RBC 4.03 M/mm3 (4.00-5.60); RDW 14.3 % (11.9-15.9); WHITE BLOOD COUNT 7.4 K/mm3 (4.0-10.0)
[2021-12-28 09:37] LABS: ALBUMIN 2.8 g/dl (3.4-5.0); BLOOD UREA NITROGEN 38.6 mg/dL (7-18); CALCIUM 8.5 mg/dL (8.5-10.1); MAGNESIUM 2.6 mg/dL (1.8-2.4)
[2021-12-28 09:40] LABS: CREATININE 1.1 mg/dL (0.55-1.3)
[2021-12-28 09:42] LABS: BILIRUBIN,TOTAL 0.2 mg/dL (0.2-1); TOT PROT 5.5 g/dl (6.4-8.2)
[2021-12-28] MEDS ORDERED: cefTRIAXone SODIUM 1 GM VIAL ONE (10:54)
[2021-12-28] MEDS ORDERED: DEXTROSE 5%-WATER - 50 ML IVPB ONE (10:54)
[2021-12-28] MEDS: ALLOPURINOL 100 MG TABLET (FP) PO SCH (10:57)
[2021-12-28] MEDS: CEFTRIAXONE 1 GM in DEXTROSE 5%-WATER - 50 ML IVPB SCH (10:57)
[2021-12-28] MEDS: ASCORBIC ACID 500 MG TABLET (FP) PO SCH ×2 (10:57→22:07)
[2021-12-28] MEDS: TAMSULOSIN HCL 0.4 MG CAP PO SCH (10:57)
[2021-12-28] MEDS: ASPIRIN COATED 81 MG TABLET.EC PO SCH (10:57)
[2021-12-28] MEDS: FUROSEMIDE 40 MG TABLET (FP) PO SCH (10:57)
[2021-12-28] MEDS: PANTOPRAZOLE 40 MG TABLET PO SCH (10:58)
[2021-12-28] MEDS: DEXAMETHASONE SOD PHOSPHATE 10 MG/1 ML VIAL IVPUSH SCH (10:58)
[2021-12-28] MEDS: BUDESONIDE/FORMETEROL FUMARATE 160/4.5 mcg INHALER IH SCH ×2 (10:59→22:53)
[2021-12-28] MEDS: dilTIAZem HCL 30 MG TABLET PO SCH ×2 (10:59→22:07)
[2021-12-28] MEDS: TIOTROPIUM BROMIDE 2.5 MCG (SPIRIVA) RESPIMAT INHALER IH SCH (10:59)
[2021-12-28 12:09] LABS: ANISOCYTOSIS 0; MACROCYTOSIS 0; PLATELET ESTIMATE NORMAL
[2021-12-28] MEDS: MIRTAZAPINE 15 MG TABLET (FP) PO SCH (22:07)
[2021-12-28] MEDS: MELATONIN 1 MG TABLET PO SCH (22:07)
[2021-12-28] MEDS: ACETAMINOPHEN 325 MG TABLET (FP) PO PRN (22:16)
[2021-12-29] MEDS: HEPARIN NA (PORCINE) 5,000 UNITS/ML 1ML VIAL SQ SCH ×3 (06:11→21:21)
[2021-12-29] MEDS: TAMSULOSIN HCL 0.4 MG CAP PO SCH (08:30)
[2021-12-29 09:00] LABS: HEMATOCRIT 35.9 % (35.4-49); HEMOGLOBIN 11.7 GM/dL (11.7-16.9); MCH 29.8 pg (25.7-33.7); MCHC 32.6 g/dl (32.0-35.9); MEAN CELL VOLUME 91.5 fl (80-96); PLATELET COUNT 251 10^3/uL (134-434); RBC 3.92 M/mm3 (4.00-5.60); RDW 14.4 % (11.9-15.9); WHITE BLOOD COUNT 11.7 K/mm3 (4.0-10.0)
[2021-12-29 09:24] LABS: ALBUMIN 2.7 g/dl (3.4-5.0); BLOOD UREA NITROGEN 45.6 mg/dL (7-18); CALCIUM 8.3 mg/dL (8.5-10.1)
[2021-12-29 09:25] LABS: MAGNESIUM 2.4 mg/dL (1.8-2.4)
[2021-12-29 09:27] LABS: CREATININE 1.1 mg/dL (0.55-1.3)
[2021-12-29 09:29] LABS: BILIRUBIN,TOTAL 0.2 mg/dL (0.2-1); TOT PROT 5.3 g/dl (6.4-8.2)
[2021-12-29 09:48] LABS: ANISOCYTOSIS 0; HELMET CELLS 0; HOWELL-JOLLY BODIES 0; MACROCYTOSIS 0; OVALOCYTE 0; PLATELET ESTIMATE NORMAL; ROULEAU 0; SICKELED CELLS 0; TARGET CELLS 0; TEAR DROP CELLS 0; TOXIC GRANULATION 0
[2021-12-29] MEDS ORDERED: DEXTROSE 5%-WATER - 50 ML IVPB ONE (10:50)
[2021-12-29] MEDS ORDERED: cefTRIAXone SODIUM 1 GM VIAL ONE (10:50)
[2021-12-29] MEDS: CEFTRIAXONE 1 GM in DEXTROSE 5%-WATER - 50 ML IVPB SCH (10:56)
[2021-12-29] MEDS: PANTOPRAZOLE 40 MG TABLET PO SCH (10:57)
[2021-12-29] MEDS: dilTIAZem HCL 30 MG TABLET PO SCH ×2 (10:57→21:21)
[2021-12-29] MEDS: DEXAMETHASONE 4 MG TABLET (FP) PO SCH (10:57)
[2021-12-29] MEDS: FUROSEMIDE 40 MG TABLET (FP) PO SCH (10:57)
[2021-12-29] MEDS: ALLOPURINOL 100 MG TABLET (FP) PO SCH (10:57)
[2021-12-29] MEDS: ASCORBIC ACID 500 MG TABLET (FP) PO SCH ×2 (10:57→21:20)
[2021-12-29] MEDS: ASPIRIN COATED 81 MG TABLET.EC PO SCH (10:57)
[2021-12-29] MEDS: LISINOPRIL 5 MG TABLET PO SCH (10:58)
[2021-12-29] MEDS: TIOTROPIUM BROMIDE 2.5 MCG (SPIRIVA) RESPIMAT INHALER IH SCH (10:58)
[2021-12-29] MEDS: BUDESONIDE/FORMETEROL FUMARATE 160/4.5 mcg INHALER IH SCH ×2 (10:58→21:21)
[2021-12-29] MEDS: MIRTAZAPINE 15 MG TABLET (FP) PO SCH (21:21)
[2021-12-29] MEDS: MELATONIN 1 MG TABLET PO SCH (21:21)
[2021-12-30] MEDS: HEPARIN NA (PORCINE) 5,000 UNITS/ML 1ML VIAL SQ SCH ×2 (05:14→13:54)
[2021-12-30] MEDS: TAMSULOSIN HCL 0.4 MG CAP PO SCH (08:31)
[2021-12-30 08:46] LABS: HEMATOCRIT 37.6 % (35.4-49); HEMOGLOBIN 12.3 GM/dL (11.7-16.9); MCH 30.3 pg (25.7-33.7); MCHC 32.7 g/dl (32.0-35.9); MEAN CELL VOLUME 92.7 fl (80-96); PLATELET COUNT 289 10^3/uL (134-434); RBC 4.06 M/mm3 (4.00-5.60); RDW 14.5 % (11.9-15.9); WHITE BLOOD COUNT 16.7 K/mm3 (4.0-10.0)
[2021-12-30 09:05] LABS: CALCIUM 8.7 mg/dL (8.5-10.1)
[2021-12-30 09:06] LABS: BLOOD UREA NITROGEN 49.3 mg/dL (7-18); MAGNESIUM 2.5 mg/dL (1.8-2.4)
[2021-12-30 09:08] LABS: CREATININE 1.2 mg/dL (0.55-1.3)
[2021-12-30 09:10] LABS: BILIRUBIN,TOTAL 0.3 mg/dL (0.2-1)
[2021-12-30] MEDS: dilTIAZem HCL 30 MG TABLET PO SCH (09:41)
[2021-12-30] MEDS: DEXAMETHASONE 4 MG TABLET (FP) PO SCH (09:41)
[2021-12-30] MEDS: ALLOPURINOL 100 MG TABLET (FP) PO SCH (09:42)
[2021-12-30] MEDS: ASCORBIC ACID 500 MG TABLET (FP) PO SCH (09:42)
[2021-12-30] MEDS: BUDESONIDE/FORMETEROL FUMARATE 160/4.5 mcg INHALER IH SCH (09:42)
[2021-12-30] MEDS: TIOTROPIUM BROMIDE 2.5 MCG (SPIRIVA) RESPIMAT INHALER IH SCH (09:42)
[2021-12-30] MEDS: FUROSEMIDE 40 MG TABLET (FP) PO SCH (09:43)
[2021-12-30] MEDS: PANTOPRAZOLE 40 MG TABLET PO SCH (09:43)
[2021-12-30] MEDS: ASPIRIN COATED 81 MG TABLET.EC PO SCH (09:43)
[2021-12-30] MEDS: LISINOPRIL 5 MG TABLET PO SCH (09:43)
[2021-12-30 11:23] LABS: ANISOCYTOSIS 0; MACROCYTOSIS 1+; PLATELET ESTIMATE NORMAL
[2021-12-30 11:35] VITALS: BP 143/55; PULSE 65; TEMP 98.1
== END 2021-12-30 16:17 | DRG 177 ==
LOC: JER 15:09 → JERBED 18:12 → J8W 12-24 04:40
PROVIDERS: ADMIT Internal Medicine; ATTEND Nurse Practitioner Family
PROC: XW033E5 Introduction of Remdesivir Anti-infective into Peripheral Vein, Percutaneous Approach, New Technology Group 5 (ICD-10-PCS; principal; 2021-12-23)
DX: U07.1 COVID-19 (principal); J12.82 Pneumonia due to coronavirus disease 2019; J96.11 Chronic respiratory failure with hypoxia; N17.9 Acute kidney failure, unspecified; N39.0 Urinary tract infection, site not specified; J44.9 Chronic obstructive pulmonary disease, unspecified; N18.9 Chronic kidney disease, unspecified; N40.0 Benign prostatic hyperplasia without lower urinary tract symptoms; D50.9 Iron deficiency anemia, unspecified; M10.9 Gout, unspecified; K59.00 Constipation, unspecified; I12.9 Hypertensive chronic kidney disease with stage 1 through stage 4 chronic kidney disease, or unspecified chronic kidney disease; F32.9 Major depressive disorder, single episode, unspecified
CPT/HCPCS: 36415; 71045-TC-FY; 80053; 81003; 82728; 83735; 84100; 84484; 85025; 85027; 85379; 85610; 85651; 85730; 86140; 87086; 87186; 97116-GP; 97161-GP; 99285-25; C9399; C9803; J1100; J1644; U0003; U0005

== ENCOUNTER 2022-04-07 13:45 | Emergency (ER) | payer OTHER ==
[2022-04-07 13:56] VITALS: BP 120/62; PULSE 82; TEMP 98.6; BMI 28.1
== END 2022-04-07 16:58 | disposition home or self-care (01) ==
LOC: JER 13:45 → JERFT 13:45
DX: M21.331 Wrist drop, right wrist (principal)
CPT/HCPCS: 99283-25

== ENCOUNTER 2022-06-07 12:56 | Emergency (ER) | payer OTHER ==
[2022-06-07 13:47] VITALS: PULSE 88; BMI 25.8
[2022-06-07] MEDS ORDERED: SODIUM CHLORIDE 0.9% 500 ML INFUS.BAG IV ONE (14:40)
[2022-06-07] MEDS ORDERED: CLINDAMYCIN 900 MG PREMIX IVPB 900 MG/50 ML BAG IVPB ONE ×2 (14:43→15:10)
[2022-06-07] MEDS ORDERED: VANCOMYCIN 1,000 MG in DEXTROSE 5%-WATER - 250 ML IVPB ONE (14:43)
[2022-06-07] MEDS ORDERED: PIPERACILLIN/TAZOB 3.375 GM 3.375 GM in DEXTROSE 5%-WATER - 50 ML IVPB ONE (14:43)
[2022-06-07 15:07] LABS: HEMATOCRIT 33.6 % (35.4-49); HEMOGLOBIN 11.1 GM/dL (11.7-16.9); MCH 30.5 pg (25.7-33.7); MCHC 32.9 g/dl (32.0-35.9); MEAN CELL VOLUME 92.8 fl (80-96); MEAN PLT VOLUME 8.6 fl (7.5-11.1); PLATELET COUNT 225 10^3/uL (134-434); RBC 3.62 M/mm3 (4.00-5.60); RDW 15.7 % (11.9-15.9); WHITE BLOOD COUNT 18.7 K/mm3 (4.0-10.0)
[2022-06-07] MEDS ORDERED: PIPERACILLIN/TAZOB 3.375 GM 3.375 GM/50 ML BAG IVPB ONE (15:10)
[2022-06-07] MEDS ORDERED: VANCOMYCIN 1 GRAM (PRE-DOCKED) 1,000 MG/250 ML BAG IVPB ONE (15:10)
[2022-06-07 15:17] LABS: ALBUMIN 3.2 g/dl (3.4-5.0); BLOOD UREA NITROGEN 69.5 mg/dL (7-18); CALCIUM 8.4 mg/dL (8.5-10.1)
[2022-06-07 15:20] LABS: CREATININE 2.5 mg/dL (0.55-1.3); INR 1.24 (0.83-1.09); PROTHROMBIN TIME (PATIENT) 14.3 SEC (9.7-13.0)
[2022-06-07 15:22] LABS: BILIRUBIN,TOTAL 0.8 mg/dL (0.2-1); TOT PROT 5.7 g/dl (6.4-8.2)
[2022-06-07 15:23] LABS: ACTIVATED PTT 27.1 SECONDS (25.2-36.5)
[2022-06-07 15:25] LABS: N-TERMINAL BNP 1067.2 pg/ml (5-450)
[2022-06-07 16:40] LABS: ERYTHROCYTE SEDIMENTATION RATE 42 mm/hr (0-20)
[2022-06-07 17:32] LABS: ANISOCYTOSIS 1+; MACROCYTOSIS 1+
[2022-06-07 17:39] LABS: PLATELET ESTIMATE ADEQUATE
[2022-06-07 19:26] LABS: VENOUS BASE EXCESS -5.7 mmol/L (-2-2); VENOUS O2 SATURATION 88.9 % (70-80); VENOUS PCO2 31.7 mmHg (38-52); VENOUS PH 7.385 (7.310-7.410)
[2022-06-07 20:00] VITALS: BP 103/82; TEMP 97.4
[2022-06-07 20:18] LABS: LACTIC ACID 4.1 mmol/L (0.4-2.0)
== END 2022-06-07 19:25 | disposition short-term general hospital (02) ==
LOC: JER 12:56
PROC: 3E03329 Introduction of Other Anti-infective into Peripheral Vein, Percutaneous Approach (ICD-10-PCS; principal; 2022-06-07)
PROC: 3E033NZ Introduction of Analgesics, Hypnotics, Sedatives into Peripheral Vein, Percutaneous Approach (ICD-10-PCS; 2022-06-07)
PROC: 3E033NZ Introduction of Analgesics, Hypnotics, Sedatives into Peripheral Vein, Percutaneous Approach (ICD-10-PCS; 2022-06-07)
PROC: 3E033NZ Introduction of Analgesics, Hypnotics, Sedatives into Peripheral Vein, Percutaneous Approach (ICD-10-PCS; 2022-06-07)
PROC: 3E033NZ Introduction of Analgesics, Hypnotics, Sedatives into Peripheral Vein, Percutaneous Approach (ICD-10-PCS; 2022-06-07)
PROC: 3E03329 Introduction of Other Anti-infective into Peripheral Vein, Percutaneous Approach (ICD-10-PCS; 2022-06-07)
DX: M79.604 Pain in right leg (principal); A41.9 Sepsis, unspecified organism; L03.115 Cellulitis of right lower limb
CPT/HCPCS: 36415; 73610-TC-RT-FY; 73700-TC-RT; 80053; 82803; 83605; 83880; 85025; 85610; 85651; 85730; 86140; 86850; 86900; 86901; 87040; 87186; 93005; 93010; 93971-TC; 99291; C9803-CS; U0003; U0005